=== PATIENT | female | born 1980 | race Caucasian/White ===

== ENCOUNTER 2017-08-23 00:56 | Inpatient (IN) | payer MEDICAID, OTHER ==
[2017-08-23] MEDS ORDERED: NACL 0.9% 1000 ML 1,000 ML IV ONE ×2 (01:30→05:56)
[2017-08-23 02:19] LABS: Basophils % (Auto) 0.2 % (0.0-1.8); Eosinophils % (Auto) 0.3 % (0.0-4.3); Hematocrit 38.9 % (30.3-42.9); Hemoglobin 13.3 gm/dl (10.1-14.3); Lymphocytes # (Auto) 2.6 K/mm3 (1.2-5.4); Lymphocytes % (Auto) 16.8 % (13.4-35.0); Mean Corpuscular HGB Conc 34 % (30-34); Mean Corpuscular Hemoglobin 31 pg (28-32); Mean Corpuscular Volume 89 fl (79-97); Monocytes # (Auto) 1.3 K/mm3 (0.0-0.8); Monocytes % (Auto) 8.2 % (0.0-7.3); Platelet Count 272 K/mm3 (140-440); Red Blood Count 4.36 M/mm3 (3.65-5.03)
[2017-08-23] MEDS ORDERED: SUBLIMAZE IV ONE (02:32)
[2017-08-23 02:57] LABS: Alanine Aminotransferase 132 units/L (7-56); Albumin 4.7 g/dL (3.9-5); BUN/Creatinine Ratio 28; Blood Urea Nitrogen 14 mg/dL (7-17); Calcium 8.8 mg/dL (8.4-10.2); Hemolysis Index 9
--- NOTE | 2017-08-23 03:23 | XRay Report ---
FINAL REPORT EXAM: XR ELBOW 3+V LT HISTORY: left elbow pain and swelling TECHNIQUE: Three views of the left elbow were submitted. FINDINGS: There is no evidence of fracture or joint effusion. The soft tissues are well maintained. IMPRESSION: Within normal limits.
--- NOTE | 2017-08-23 03:24 | XRay Report ---
FINAL REPORT EXAM: XR FOREARM LT HISTORY: left forearm pain TECHNIQUE: Three views of the left forearm were submitted. FINDINGS: There is no evidence of fracture or soft tissue injury. The wrist and elbow joints not show any acute changes. IMPRESSION: Within normal limits.
--- NOTE | 2017-08-23 05:50 | Cat Scan Report ---
FINAL REPORT EXAM: CT ANGIO UPPER EXTREMITY LT HISTORY: left elbow and forearm pain and swelling TECHNIQUE: A CT angiogram was obtained of the left upper extremity extending from just above the elbow joint through the entire forearm following the intravenous injection of 100 cc of Omnipaque 300. Sagittal and coronal MIP reconstructions were reviewed. FINDINGS: The brachial artery is widely patent. The radial and ulnar arteries are also widely patent also. There is no evidence of arterial occlusion. There is no evidence of fracture. The muscular shows no evidence of localized injury or contusion. The subcutaneous tissues reveal induration of the subcutaneous fat overlying the posterior aspect the elbow extending anteriorly also. There is no evidence of radiopaque foreign body in the soft tissues. IMPRESSION: No evidence of intimal injury or occlusion of the brachial, radial or ulnar arteries. Induration of the subcutaneous tissues around the elbow compatible soft tissue injury. No evidence of intramuscular injury or fracture. No evidence of subcutaneous hematoma.
[2017-08-23] MEDS ORDERED: ROCEPHIN/NS 1 GM/50 ML 1 GM/50 ML BAG IV ONE (05:56)
[2017-08-23] MEDS ORDERED: TYLENOL #3 PO ONE (05:56)
[2017-08-23] MEDS ORDERED: cefTRIAXone 1 GM in NACL 0.9% 20 ML IV ONE (06:00)
[2017-08-23] MEDS ORDERED: BABY ASPIRIN PO ONE (06:01)
--- NOTE | 2017-08-23 06:01 | Emergency Department Report ---
HPI - General Chief Complaint: Overdose Time Seen by Provider: 08/23/17 01:28 - HPI HPI: The patient is a 37-year-old female presents for evaluation of altered mental status. The patient's son, the patient has exhibited change in baseline mentation and constant severe generalized weakness since this morning. The patient complains of left elbow and forearm pain since awakening this morning. Her son submitted that she fell asleep on her arm, and there was she awoke it was tender and swollen. She states that her arm pain has been constant, 10/10 severity, throbbing in quality, exacerbated with touching of the arm or to the movement of the arm at the elbow joint. Patient denies fever, some to the head, headache, chest pain, dyspnea, abdominal pain, back pain, neck pain, strokelike symptoms. ED Past Medical Hx - Past Medical History Hx Congestive Heart Failure: No Hx Diabetes: No Hx Asthma: No Hx COPD: No - Social History Smoking Status: Unknown if ever smoked Substance Use Type: Alcohol ED Review of Systems ROS: Stated complaint: POSS OVERDOSE Other details as noted in HPI Constitutional: denies: fever ENT: denies: throat or neck pain Respiratory: denies: cough, shortness of breath Cardiovascular: denies: chest pain Endocrine: denies unexplained weight loss or gain Gastrointestinal: denies: abdominal pain, nausea Genitourinary: denies: dysuria Musculoskeletal: reports arm pain denies: leg swelling Skin: denies: rash Neurological: denies: headache Hematological/Lymphatic: denies: easy bleeding or easy bruising Psych: denies sadness or hopelessness Physical Exam - Physical Exam Vital Signs: Vital Signs 08/23/17 08/23/17 08/23/17 01:26 02:46 03:05 Temperature 97.5 F L 97.7 F 97.7 F Pulse Rate 133 H Respiratory 12 Rate Blood Pressure 119/69 [Right] O2 Sat by Pulse 100 Oximetry 08/23/17 04:00 Temperature 97.7 F Pulse Rate Respiratory Rate Blood Pressure [Right] O2 Sat by Pulse Oximetry Physical Exam: General: well-nourished, well-developed, no acute distress Head: Normocephalic, atraumatic Eyes: normal sclera ENT: Mucous membranes are pale and dry Neck: trachea midline, neck supple, No neck stiffness, no cervical adenopathy Respiratory: Breath sounds equal bilaterally, no wheezing, rales, or rhonchi Cardio: S1 and S2 present, no murmurs, rubs, gallops, capillary refill is delayed Abdomen: Normoactive bowel sounds, soft abdomen, no rigidity, no guarding or rebound tenderness Chest WALL/Back: No tenderness to palpation of the chest wall, no CVA tenderness with percussion Musc: Left forearm and elbow erythema and tenderness to palpation present, sensation, motor function, and pulses in the left arm and wrist distal to the area of pain intact, compartments are soft and pliable, no pain with passive flexion or extension, no signs of compartment syndrome at this time Skin: No rash Neuro: Alert, mildly drowsy, disoriented, no obvious sensation or motor deficit in the arms or legs bilaterally Psych: Normal affect ED Course Vital Signs 08/23/17 08/23/17 08/23/17 01:26 02:46 03:05 Temperature 97.5 F L 97.7 F 97.7 F Pulse Rate 133 H Respiratory 12 Rate Blood Pressure 119/69 [Right] O2 Sat by Pulse 100 Oximetry 08/23/17 04:00 Temperature 97.7 F Pulse Rate Respiratory Rate Blood Pressure [Right] O2 Sat by Pulse Oximetry ED Medical Decision Making - Lab Data Result diagrams: 08/23/17 01:36 08/23/17 01:36 - Medical Decision Making The patient was seen and examined by myself. The patient is placed on a satellite project site monitor and continuous pulse ox. On initial evaluation, the patient was found to be in no distress. Evaluation orders were placed. The patient is given pain medicine. Lab results revealed leukocytosis, WBC 15, and severely elevated CK > 5000, consistent with acute rhabdomyolysis. The patient given multiple normal saline fluid boluses for treatment of her rhabdomyolysis. She is given IV Rocephin for treatment of suspected cellulitis. TDr. Serra, the physician on-call for the hospitalist service was contacted. He agreed that the hospitalist service will admit the patient. He also agreed to ensure that the next on, hospitalist will evaluate the patient and admit the patient for further treatment and close monitoring. The ED admit order was placed. The patient was admitted in guarded condition. Critical care attestation.: If time is entered above; I have spent that time in minutes in the direct care of this critically ill patient, excluding procedure time. ED Disposition Clinical Impression: Cellulitis of left forearm, Dehydration Rhabdomyolysis Qualifiers: Rhabdomyolysis type: traumatic Encounter type: initial encounter Qualified Code (s): T79.6XXA - Traumatic ischemia of muscle, initial encounter Disposition: OP ADMIT IP TO THIS HOSP Is pt being admited?: Yes Does the pt Need Aspirin: Yes Condition: Serious Referrals: PRIMARY CARE,MD [Primary Care Provider] - 3-5 Days Time of Disposition: 06:00
[2017-08-23 08:10] LABS: Bilirubin,Urine NEG (Negative); Blood,Urine LG (Negative); Color,Urine Yellow (Yellow); Mucus,Urine FEW /HPF; RBC,Urine < 1.0 /HPF (0.0-6.0); Urobilinogen,Urine < 2.0 mg/dL (<2.0)
[2017-08-23 08:21] LABS: Amphetamine Screen,Urine PRESUMPTIVE NEGATIVE; Benzodiazepines Screen,Urine PRESUMPTIVE NEGATIVE; Cannabinoid Screen,Urine PRESUMPTIVE NEGATIVE; Cocaine Screen,Urine PRESUMPTIVE NEGATIVE; Opiate Screen,Urine PRESUMPTIVE NEGATIVE
[2017-08-23 08:36] LABS: Methadone Screen,Urine PRESUMPTIVE POSITIVE
--- NOTE | 2017-08-23 09:12 | History and Physical Report ---
History of Present Illness Date of examination: 08/23/17 Date of admission: 08/23/17 Chief complaint: cellulitis left arm possible overe dose of seroquel and Prazosin History of present illness: The patient is a 37-year-old female presents for evaluation of altered mental status. Pt ronit is very sleepy and has to be woken up to answer questionsted she tookover doese of her meds - seroquel and minipress (prazosin) unintentionally. The patient's son, the patient has exhibited change in baseline mentation and constant severe generalized weakness since this morning. The patient complains of left elbow and forearm pain since awakening this morning. Her son submitted that she fell asleep on her arm, and there was she awoke it was tender and swollen. She states that her arm pain has been constant , 10/10 severity, throbbing in quality, exacerbated with touching of the arm or to the movement of the arm at the elbow joint. Patient denies fever, some to the head, headache, chest pain, dyspnea, abdominal pain, back pain, neck pain, strokelike symptoms. Past History Past Medical History: other (depression) Past Surgical History: No surgical history Social history: alcohol abuse. denies: smoking Family history: other (depression) Medications and Allergies Allergies Allergy/AdvReac Type Severity Reaction Status Date / Time No Known Allergies Allergy Verified 02/19/13 07:41 Home Medications Medication Instructions Recorded Confirmed Last Taken Type Prazosin [Minipress] 1 mg PO BID 08/23/17 08/23/17 Unknown History Active Meds: Seroquell Review of Systems ROS unobtainable: due to mental status Exam - Constitutional Vitals: Temp Pulse Resp BP Pulse Ox 99.2 F 120 H 20 118/64 99 08/23/17 08:10 08/23/17 08:10 08/23/17 08:10 08/23/17 08:10 08/23/17 08:10 General appearance: Present: no acute distress, well-nourished, other (sleepy and unable to maintain a conversation) - EENT Eyes: Present: PERRL ENT: hearing intact, clear oral mucosa - Neck Neck: Present: supple, normal ROM - Respiratory Respiratory effort: normal Respiratory: bilateral: CTA - Cardiovascular Heart Sounds: Present: S1 & S2. Absent: rub, click - Extremities Extremities: pulses symmetrical, No edema Extremity abnormal: other (tender infalmed keft albow) Peripheral Pulses: within normal limits - Abdominal General gastrointestinal: Present: soft, non-tender, non-distended, normal bowel sounds - Integumentary Integumentary: Present: clear, warm, dry - Musculoskeletal Musculoskeletal: gait normal, strength equal bilaterally - Psychiatric Psychiatric: appropriate mood/affect, intact judgment & insight - Neurologic Neurologic: CNII-XII intact, moves all extremities Results - Labs CBC & Chem 7: 08/23/17 01:36 08/23/17 09:27 Labs: Abnormal lab results 08/23/17 08/23/17 08/23/17 Range/Units 01:36 01:36 01:36 WBC 15.3 H (4.5-11.0) K/mm3 [place] % (Auto) 8.2 H (0.0-7.3) % [place] # 1.3 H (0.0-0.8) K/mm3 Seg Neutrophils % 74.5 H (40.0-70.0) % Seg Neutrophils # 11.4 H (1.8-7.7) K/mm3 Carbon Dioxide 16 L (22-30) mmol/L Creatinine 0.5 L (0.7-1.2) mg/dL Glucose 126 H (65-100) mg/dL AST 177 H (5-40) units/L ALT 132 H (7-56) units/L Total Creatine Kinase 5752 H (30-135) units/L Ur Specific [place] (1.003-1.030) Salicylates < 0.3 L (2.8-20.0) mg/dL Acetaminophen (10.0-30.0) ug/mL 08/23/17 08/23/17 Range/Units 01:36 07:54 WBC (4.5-11.0) K/mm3 [place] % (Auto) (0.0-7.3) % [place] # (0.0-0.8) K/mm3 Seg Neutrophils % (40.0-70.0) % Seg Neutrophils # (1.8-7.7) K/mm3 Carbon Dioxide (22-30) mmol/L Creatinine (0.7-1.2) mg/dL Glucose (65-100) mg/dL AST (5-40) units/L ALT (7-56) units/L Total Creatine Kinase (30-135) units/L Ur Specific [place] 1.035 H (1.003-1.030) Salicylates (2.8-20.0) mg/dL Acetaminophen < 5.0 L (10.0-30.0) ug/mL Assessment and Plan Cellulitis left arm Overdose of antidepressant Rhabdomyelysis h/o depreession Admit Commencept in iv hydration Levaquin Daily total CK DVT and GI PPx
[2017-08-23 09:54] LABS: Alanine Aminotransferase 181 units/L (7-56); Albumin 3.8 g/dL (3.9-5); BUN/Creatinine Ratio 35; Blood Urea Nitrogen 14 mg/dL (7-17); Calcium 7.9 mg/dL (8.4-10.2); Hemolysis Index 0
[2017-08-23] MEDS ORDERED: NACL 0.9% 1000 ML 1,000 ML IV SCH (10:00)
--- NOTE | 2017-08-23 15:42 | Vascular Lab Report ---
LEFT UPPER EXTREMITY VENOUS DUPLEX: REASON FOR EXAM: Pain and swelling of the left upper extremity COMMENTS ON THE LEFT: All arm veins visualized are freely compressible without evidence of internal echogenicity. The subclavian and internal jugular veins are free of thrombus. Flow is spontaneous and phasic throughout. COMMENTS ON THE RIGHT: A limited study of the jugular and subclavian veins shows no evidence of thrombus. IMPRESSION: No evidence of acute or chronic deep venous thrombosis in the left upper extremity.
[2017-08-23 19:38] LABS: INR 1.05 (0.87-1.13)
[2017-08-23] MEDS: SODIUM BICARBONATE 150 MEQ in D5W 1,000 ML IV SCH (22:42)
[2017-08-24 01:06] LABS: Alanine Aminotransferase 215 units/L (7-56)
[2017-08-24 01:09] LABS: Bilirubin,Direct < 0.2 mg/dL (0-0.2)
[2017-08-24 07:13] LABS: Alanine Aminotransferase 210 units/L (7-56); Albumin 3.8 g/dL (3.9-5)
[2017-08-24 07:20] LABS: Bilirubin,Direct < 0.2 mg/dL (0-0.2)
[2017-08-24] MEDS: MORPHINE IV PRN ×2 (12:51→16:54)
[2017-08-24 13:26] LABS: Alanine Aminotransferase 202 units/L (7-56); Albumin 3.7 g/dL (3.9-5); BUN/Creatinine Ratio 20; Blood Urea Nitrogen 8 mg/dL (7-17); Calcium 8.2 mg/dL (8.4-10.2); Hemolysis Index 5
[2017-08-24 13:28] LABS: Alanine Aminotransferase 202 units/L (7-56); Albumin 3.7 g/dL (3.9-5)
[2017-08-24 13:35] LABS: Bilirubin,Direct < 0.2 mg/dL (0-0.2)
--- NOTE | 2017-08-24 16:09 | Consultation ---
History of Present Illness - [facility] Consult date: 08/24/17 Consult reason: joint pain History of present illness: 37 y/o female with c/o left elbow and forearm pain and swellling after accidently taking overdosage of prescription medications, according to son. Past History Past Medical History: other (depression) Past Surgical History: No surgical history Social history: alcohol abuse. denies: smoking Family history: other (depression) Medications and Allergies Allergies Allergy/AdvReac Type Severity Reaction Status Date / Time No Known Allergies Allergy Verified 02/19/13 07:41 Home Medications Medication Instructions Recorded Confirmed Last Taken Type Prazosin [Minipress] 1 mg PO BID 08/23/17 08/23/17 Unknown History Active Meds: Active Medications Sodium Chloride (Nacl 0.9% 1000 Ml) 1,000 mls @ 150 mls/hr IV DIRECT BUTCH Last Admin: 08/23/17 15:32 Dose: 150 mls/hr Sodium Bicarbonate 150 meq/ (Dextrose) 1,150 mls @ 75 mls/hr IV DIRECT BUTCH Last Admin: 08/23/17 22:42 Dose: 75 mls/hr Morphine Sulfate (Morphine) 2 mg IV Q4H PRN PRN Reason: Pain, Moderate (4-6) Last Admin: 08/24/17 12:51 Dose: 2 mg Physical Examination - Physical exam Narrative exam: left upper extremity - moderate swelling, compartments compressible good passive ROM at all digits, good capillary refill, weak inventory control supervisor strength Assessment and Plan neuropraxia left upper secondary to prolonged compression doubt compartment syndrome at this point recommend observation at this point...
--- NOTE | 2017-08-24 16:28 | Progress Note ---
<HIPOLITO FINN - Last Filed: 08/25/17 11:55> Assessment and Plan Assessment and plan: Patient is a 37-year-old woman who presented to the emergency department with altered mental status secondary to possible unintentional overdose of Seroquel and prazosin. Patient also complained of left elbow pain and swelling. Cellulitis left arm Initiated on IV antibiotics, supportive care, ortho consult UE VENOUS DUPLEX DONE. NO EVIDENCE OF DVT/SVT IN VESSELS VISUALIZED. SOFT TISSUE CHANGES SEEN IN THE LT.AC/PX FOREARM. Overdose of antidepressant Continue to monitor, IV resuscitation Elevated liver enzymes Likely secondary to above, abdominal U/s ordered Rhabdomyolysis IV resuscitation, Daily total CK Hyperglycemia No history of DM, will check A1C Hypokalemia supplemented Depression Will hold Seroquel in light of OD DVT SCDs History Interval history: Patient seen and examined. She continues to complain of left arm pain. She has no other complaints at this time. Labs and nursing notes reviewed. Hospitalist Physical - Physical exam Narrative exam: General appearance: Present: no acute distress, well-nourished - EENT Eyes: Present: PERRL, EOM intact ENT: hearing intact, clear oral mucosa - Neck Present: supple, normal ROM - Respiratory Respiratory effort: normal Respiratory: bilateral: CTA - Cardiovascular Rhythm: regular Heart Sounds: Present: S1 & S2 - Extremities Extremities: no ischemia, left elbow erythematous, edematous, tender to palpation - Abdominal General gastrointestinal: soft, non-tender, non-distended - Integumentary Integumentary: Present: clear, warm, dry - Psychiatric Psychiatric: appropriate mood/affect, intact judgment & insight, cooperative - Neurologic Neurologic: CNII-XII intact, moves all extremities - Constitutional Vitals: Temp Pulse Resp BP Pulse Ox 99.9 F H 95 H 18 139/79 98 08/24/17 11:34 08/24/17 08:07 08/24/17 11:34 08/24/17 11:34 08/24/17 08:07 Results - Labs CBC & Chem 7: 08/24/17 16:25 08/25/17 08:49 Labs: Laboratory Last Values WBC 15.3 K/mm3 (4.5-11.0) H 08/23/17 01:36 RBC 4.36 M/mm3 (3.65-5.03) 08/23/17 01:36 Hgb 13.3 gm/dl (10.1-14.3) 08/23/17 01:36 Hct 38.9 % (30.3-42.9) 08/23/17 01:36 MCV 89 fl (79-97) 08/23/17 01:36 MCH 31 pg (28-32) 08/23/17 01:36 MCHC 34 % (30-34) 08/23/17 01:36 RDW 14.0 % (13.2-15.2) 08/23/17 01:36 Plt Count 272 K/mm3 (140-440) 08/23/17 01:36 Lymph % (Auto) 16.8 % (13.4-35.0) 08/23/17 01:36 [place] % (Auto) 8.2 % (0.0-7.3) H 08/23/17 01:36 Eos % (Auto) 0.3 % (0.0-4.3) 08/23/17 01:36 Baso % (Auto) 0.2 % (0.0-1.8) 08/23/17 01:36 Lymph # 2.6 K/mm3 (1.2-5.4) 08/23/17 01:36 [place] # 1.3 K/mm3 (0.0-0.8) H 08/23/17 01:36 Eos # 0.0 K/mm3 (0.0-0.4) 08/23/17 01:36 Baso # 0.0 K/mm3 (0.0-0.1) 08/23/17 01:36 Seg Neutrophils % 74.5 % (40.0-70.0) H 08/23/17 01:36 Seg Neutrophils # 11.4 K/mm3 (1.8-7.7) H 08/23/17 01:36 PT 14.3 Sec. (12.2-14.9) 08/23/17 19:17 INR 1.05 (0.87-1.13) 08/23/17 19:17 Sodium 135 mmol/L (137-145) L 08/24/17 12:23 Potassium 3.4 mmol/L (3.6-5.0) L 08/24/17 12:23 Chloride 106.5 mmol/L (98-107) 08/24/17 12:23 Carbon Dioxide 17 mmol/L (22-30) L 08/24/17 12:23 Anion Gap 15 mmol/L 08/24/17 12:23 BUN 8 mg/dL (7-17) 08/24/17 12:23 Creatinine 0.4 mg/dL (0.7-1.2) L 08/24/17 12:23 Estimated GFR > 60 ml/min 08/24/17 12:23 BUN/Creatinine Ratio 20 % 08/24/17 12:23 Glucose 144 mg/dL (65-100) H 08/24/17 12:23 Calcium 8.2 mg/dL (8.4-10.2) L 08/24/17 12:23 Total Bilirubin 0.40 mg/dL (0.1-1.2) 08/24/17 12:23 Direct Bilirubin < 0.2 mg/dL (0-0.2) 08/24/17 12:23 Indirect Bilirubin 0.2 mg/dL 08/24/17 12:23 AST 331 units/L (5-40) H 08/24/17 12:23 ALT 202 units/L (7-56) H 08/24/17 12:23 Alkaline Phosphatase 76 units/L (35-129) 08/24/17 12:23 Total Creatine Kinase 6336 units/L (30-135) H 08/24/17 12:23 NT-Pro-B Natriuret Pep 89.77 pg/mL (0-450) 08/23/17 01:36 Total Protein 6.9 g/dL (6.3-8.2) 08/24/17 12:23 Albumin 3.7 g/dL (3.9-5) L 08/24/17 12:23 Albumin/Globulin Ratio 1.2 % 08/24/17 12:23 HCG, Qual Negative (Negative) 08/23/17 01:36 Urine Color Yellow (Yellow) 08/23/17 07:54 Urine Turbidity Clear (Clear) 08/23/17 07:54 Urine pH 6.0 (5.0-7.0) 08/23/17 07:54 Ur Specific [place] 1.035 (1.003-1.030) H 08/23/17 07:54 Urine Protein 100 mg/dl mg/dL (Negative) 08/23/17 07:54 Urine Glucose (UA) Neg mg/dL (Negative) 08/23/17 07:54 Urine Ketones 80 mg/dL (Negative) 08/23/17 07:54 Urine Blood Lg (Negative) 08/23/17 07:54 Urine Nitrite Neg (Negative) 08/23/17 07:54 Urine Bilirubin Neg (Negative) 08/23/17 07:54 Urine Urobilinogen < 2.0 mg/dL (<2.0) 08/23/17 07:54 Ur Leukocyte Esterase Neg (Negative) 08/23/17 07:54 Urine WBC (Auto) 3.0 /HPF (0.0-6.0) 08/23/17 07:54 Urine RBC (Auto) < 1.0 /HPF (0.0-6.0) 08/23/17 07:54 U Epithel Cells (Auto) 2.0 /HPF (0-13.0) 08/23/17 07:54 Urine Mucus Few /HPF 08/23/17 07:54 Salicylates < 0.3 mg/dL (2.8-20.0) L 08/23/17 01:36 Urine Opiates Screen Presumptive negative 08/23/17 07:55 Urine Methadone Screen Presumptive positive 08/23/17 07:55 Acetaminophen < 5.0 ug/mL (10.0-30.0) L 08/23/17 01:36 Ur Barbiturates Screen Presumptive negative 08/23/17 07:55 Ur Phencyclidine Scrn Presumptive negative 08/23/17 07:55 Ur Amphetamines Screen Presumptive negative 08/23/17 07:55 U Benzodiazepines Scrn Presumptive negative 08/23/17 07:55 Urine Cocaine Screen Presumptive negative 08/23/17 07:55 U Marijuana (THC) Screen Presumptive negative 08/23/17 07:55 Drugs of Abuse Note Disclamer 08/23/17 07:55 Plasma/Serum Alcohol < 0.01 % (0-0.07) 08/23/17 01:36 <NAYELY MEDEROS - Last Filed: 08/26/17 14:28> Assessment and Plan Disposition Plan: Discussed Mx plan with physician panel gl[facility] Physical - Constitutional Vitals: Temp Pulse Resp BP Pulse Ox 98.5 F 102 H 18 150/86 100 08/26/17 04:10 08/26/17 04:10 08/26/17 10:00 08/26/17 04:10 08/26/17 04:10 Results - Labs CBC & Chem 7: 08/25/17 16:19 08/25/17 08:49 Labs: Laboratory Last Values WBC 10.6 K/mm3 (4.5-11.0) 08/25/17 16:19 RBC 4.16 M/mm3 (3.65-5.03) 08/25/17 16:19 Hgb 12.4 gm/dl (10.1-14.3) 08/25/17 16:19 Hct 36.6 % (30.3-42.9) 08/25/17 16:19 MCV 88 fl (79-97) 08/25/17 16:19 MCH 30 pg (28-32) 08/25/17 16:19 MCHC 34 % (30-34) 08/25/17 16:19 RDW 14.0 % (13.2-15.2) 08/25/17 16:19 Plt Count 285 K/mm3 (140-440) 08/25/17 16:19 Lymph % (Auto) 30.2 % (13.4-35.0) 08/25/17 16:19 [place] % (Auto) 8.5 % (0.0-7.3) H 08/25/17 16:19 Eos % (Auto) 0.9 % (0.0-4.3) 08/25/17 16:19 Baso % (Auto) 0.6 % (0.0-1.8) 08/25/17 16:19 Lymph # 3.2 K/mm3 (1.2-5.4) 08/25/17 16:19 [place] # 0.9 K/mm3 (0.0-0.8) H 08/25/17 16:19 Eos # 0.1 K/mm3 (0.0-0.4) 08/25/17 16:19 Baso # 0.1 K/mm3 (0.0-0.1) 08/25/17 16:19 Seg Neutrophils % 59.8 % (40.0-70.0) 08/25/17 16:19 Seg Neutrophils # 6.3 K/mm3 (1.8-7.7) 08/25/17 16:19 PT 14.3 Sec. (12.2-14.9) 08/23/17 19:17 INR 1.05 (0.87-1.13) 08/23/17 19:17 Sodium 134 mmol/L (137-145) L 08/25/17 08:49 Potassium 3.5 mmol/L (3.6-5.0) L 08/25/17 08:49 Chloride 102.7 mmol/L (98-107) 08/25/17 08:49 Carbon Dioxide 24 mmol/L (22-30) D 08/25/17 08:49 Anion Gap 11 mmol/L 08/25/17 08:49 BUN 11 mg/dL (7-17) 08/25/17 08:49 Creatinine 0.4 mg/dL (0.7-1.2) L 08/25/17 08:49 Estimated GFR > 60 ml/min 08/25/17 08:49 BUN/Creatinine Ratio 28 % 08/25/17 08:49 Glucose 240 mg/dL (65-100) H 08/25/17 08:49 Hemoglobin A1c 5.5 % (4-6) 08/24/17 16:25 Calcium 7.8 mg/dL (8.4-10.2) L 08/25/17 08:49 Magnesium 2.20 mg/dL (1.7-2.3) 08/25/17 16:19 Total Bilirubin 0.60 mg/dL (0.1-1.2) 08/25/17 08:49 Direct Bilirubin < 0.2 mg/dL (0-0.2) 08/24/17 16:25 Indirect Bilirubin 0.2 mg/dL 08/24/17 16:25 AST 259 units/L (5-40) H 08/25/17 08:49 ALT 176 units/L (7-56) H 08/25/17 08:49 Alkaline Phosphatase 77 units/L (35-129) 08/25/17 08:49 Total Creatine Kinase 4328 units/L (30-135) H 08/25/17 08:40 NT-Pro-B Natriuret Pep 89.77 pg/mL (0-450) 08/23/17 01:36 Total Protein 6.6 g/dL (6.3-8.2) 08/25/17 08:49 Albumin 3.5 g/dL (3.9-5) L 08/25/17 08:49 Albumin/Globulin Ratio 1.1 % 08/25/17 08:49 TSH 3.550 mlU/mL (0.270-4.200) 08/25/17 16:19 HCG, Qual Negative (Negative) 08/23/17 01:36 Urine Color Yellow (Yellow) 08/23/17 07:54 Urine Turbidity Clear (Clear) 08/23/17 07:54 Urine pH 6.0 (5.0-7.0) 08/23/17 07:54 Ur Specific [place] 1.035 (1.003-1.030) H 08/23/17 07:54 Urine Protein 100 mg/dl mg/dL (Negative) 08/23/17 07:54 Urine Glucose (UA) Neg mg/dL (Negative) 08/23/17 07:54 Urine Ketones 80 mg/dL (Negative) 08/23/17 07:54 Urine Blood Lg (Negative) 08/23/17 07:54 Urine Nitrite Neg (Negative) 08/23/17 07:54 Urine Bilirubin Neg (Negative) 08/23/17 07:54 Urine Urobilinogen < 2.0 mg/dL (<2.0) 08/23/17 07:54 Ur Leukocyte Esterase Neg (Negative) 08/23/17 07:54 Urine WBC (Auto) 3.0 /HPF (0.0-6.0) 08/23/17 07:54 Urine RBC (Auto) < 1.0 /HPF (0.0-6.0) 08/23/17 07:54 U Epithel Cells (Auto) 2.0 /HPF (0-13.0) 08/23/17 07:54 Urine Mucus Few /HPF 08/23/17 07:54 Salicylates < 0.3 mg/dL (2.8-20.0) L 08/23/17 01:36 Urine Opiates Screen Presumptive negative 08/23/17 07:55 Urine Methadone Screen Presumptive positive 08/23/17 07:55 Acetaminophen < 5.0 ug/mL (10.0-30.0) L 08/23/17 01:36 Ur Barbiturates Screen Presumptive negative 08/23/17 07:55 Ur Phencyclidine Scrn Presumptive negative 08/23/17 07:55 Ur Amphetamines Screen Presumptive negative 08/23/17 07:55 U Benzodiazepines Scrn Presumptive negative 08/23/17 07:55 Urine Cocaine Screen Presumptive negative 08/23/17 07:55 U Marijuana (THC) Screen Presumptive negative 08/23/17 07:55 Drugs of Abuse Note Disclamer 08/23/17 07:55 Plasma/Serum Alcohol < 0.01 % (0-0.07) 08/23/17 01:36
[2017-08-24 16:43] LABS: Basophils # (Auto) 0.1 K/mm3 (0.0-0.1); Basophils % (Auto) 0.5 % (0.0-1.8); Eosinophils % (Auto) 0.3 % (0.0-4.3); Hematocrit 36.1 % (30.3-42.9); Lymphocytes # (Auto) 2.9 K/mm3 (1.2-5.4); Lymphocytes % (Auto) 27.1 % (13.4-35.0); Mean Corpuscular HGB Conc 33 % (30-34); Mean Corpuscular Hemoglobin 30 pg (28-32); Mean Corpuscular Volume 89 fl (79-97); Monocytes # (Auto) 0.9 K/mm3 (0.0-0.8); Monocytes % (Auto) 8.4 % (0.0-7.3); Platelet Count 281 K/mm3 (140-440); Red Blood Count 4.07 M/mm3 (3.65-5.03); Red Cell Distribution Width 14.1 % (13.2-15.2)
[2017-08-24 17:09] LABS: Alanine Aminotransferase 213 units/L (7-56)
[2017-08-24 17:13] LABS: Bilirubin,Direct < 0.2 mg/dL (0-0.2)
[2017-08-24] MEDS: SODIUM BICARBONATE 150 MEQ in D5W 1,000 ML IV SCH (18:03)
[2017-08-24] MEDS: ZOSYN/NS 3.375GM/50ML 3.375 GM/50 ML BAG IV SCH (19:40)
[2017-08-25] MEDS: ZOSYN/NS 3.375GM/50ML 3.375 GM/50 ML BAG IV SCH ×4 (00:15→22:53)
[2017-08-25] MEDS: MORPHINE IV PRN ×4 (00:19→20:34)
[2017-08-25 09:25] LABS: Alanine Aminotransferase 176 units/L (7-56); Albumin 3.5 g/dL (3.9-5); BUN/Creatinine Ratio 28; Blood Urea Nitrogen 11 mg/dL (7-17); Calcium 7.8 mg/dL (8.4-10.2); Hemolysis Index 2
--- NOTE | 2017-08-25 10:37 | Ultrasound Report ---
Sonogram abdomen: History: Pseudocyst. Findings: Aortic diameter 1.6 cm. Uniform increase in echogenicity liver probably suggestive of fatty liver. No intrahepatic or extrahepatic duct dilatation. Common bile duct diameter 4.3 mm. Two largest stones identified within the gallbladder. Gallbladder wall thickness 2.5 mm. Right kidney 11.9 x 5.4 x 6 cm. Cortical thickness is 1.5 cm. Left kidney 12.3 x 2.9 x 4.3 cm. Cortical thickness 1.3 cm. The spleen measures 10.7 cm. Pancreas is normal. Impression: Fatty liver. 2 large calculi in the gallbladder
[2017-08-25] MEDS ORDERED: K-DUR PO NR (11:49)
--- NOTE | 2017-08-25 11:55 | Progress Note ---
<HIPOLITO FINN - Last Filed: 08/25/17 14:53> Assessment and Plan Assessment and plan: Patient is a 37-year-old woman who presented to the emergency department with altered mental status secondary to possible unintentional overdose of Seroquel and prazosin. Patient also complained of left elbow pain and swelling. Cellulitis left arm Initiated on IV antibiotics, supportive care UE VENOUS DUPLEX DONE. NO EVIDENCE OF DVT/SVT IN VESSELS VISUALIZED. SOFT TISSUE CHANGES SEEN IN THE LT.AC/PX FOREARM. ortho following-neuropraxia left upper secondary to prolonged compression doubt compartment syndrome at this point recommend observation at this point Overdose of antidepressant Continue to monitor, IV resuscitation Elevated liver enzymes Trending down, Likely secondary to above abdominal U/s shows Fatty liver and 2 large calculi in the gallbladder Rhabdomyolysis IV resuscitation, Daily total CK Hyperglycemia No history of DM, will check A1C Hypokalemia Supplemented Depression Will hold Seroquel in light of OD DVT SCDs History Interval history: Patient seen and examined. R arm pain, tenderness and swelling worsening. Patient has no new complaints. Labs and nursing notes reviewed. Hospitalist Physical - Physical exam Narrative exam: General appearance: Present: no acute distress, well-nourished - EENT Eyes: Present: PERRL, EOM intact ENT: hearing intact, clear oral mucosa - Neck Present: supple, normal ROM - Respiratory Respiratory effort: normal Respiratory: bilateral: CTA - Cardiovascular Rhythm: regular Heart Sounds: Present: S1 & S2 - Extremities Extremities: no ischemia, left arm, forearm and fingers edematous, tender to palpation - Abdominal General gastrointestinal: soft, non-tender, non-distended - Integumentary Integumentary: Present: clear, warm, dry - Psychiatric Psychiatric: appropriate mood/affect, intact judgment & insight, cooperative - Neurologic Neurologic: CNII-XII intact, moves all extremities - Constitutional Vitals: Temp Pulse Resp BP Pulse Ox 98.4 F 95 H 18 137/90 97 08/25/17 07:48 08/25/17 07:48 08/25/17 07:48 08/25/17 07:48 08/25/17 07:48 General appearance: Present: other Results - Labs CBC & Chem 7: 08/24/17 16:25 08/25/17 08:49 Labs: Laboratory Last Values WBC 10.8 K/mm3 (4.5-11.0) 08/24/17 16:25 RBC 4.07 M/mm3 (3.65-5.03) 08/24/17 16:25 Hgb 12.0 gm/dl (10.1-14.3) 08/24/17 16:25 Hct 36.1 % (30.3-42.9) 08/24/17 16:25 MCV 89 fl (79-97) 08/24/17 16:25 MCH 30 pg (28-32) 08/24/17 16:25 MCHC 33 % (30-34) 08/24/17 16:25 RDW 14.1 % (13.2-15.2) 08/24/17 16:25 Plt Count 281 K/mm3 (140-440) 08/24/17 16:25 Lymph % (Auto) 27.1 % (13.4-35.0) 08/24/17 16:25 [place] % (Auto) 8.4 % (0.0-7.3) H 08/24/17 16:25 Eos % (Auto) 0.3 % (0.0-4.3) 08/24/17 16:25 Baso % (Auto) 0.5 % (0.0-1.8) 08/24/17 16:25 Lymph # 2.9 K/mm3 (1.2-5.4) 08/24/17 16:25 [place] # 0.9 K/mm3 (0.0-0.8) H 08/24/17 16:25 Eos # 0.0 K/mm3 (0.0-0.4) 08/24/17 16:25 Baso # 0.1 K/mm3 (0.0-0.1) 08/24/17 16:25 Seg Neutrophils % 63.7 % (40.0-70.0) 08/24/17 16:25 Seg Neutrophils # 6.9 K/mm3 (1.8-7.7) 08/24/17 16:25 PT 14.3 Sec. (12.2-14.9) 08/23/17 19:17 INR 1.05 (0.87-1.13) 08/23/17 19:17 Sodium 134 mmol/L (137-145) L 08/25/17 08:49 Potassium 3.5 mmol/L (3.6-5.0) L 08/25/17 08:49 Chloride 102.7 mmol/L (98-107) 08/25/17 08:49 Carbon Dioxide 24 mmol/L (22-30) D 08/25/17 08:49 Anion Gap 11 mmol/L 08/25/17 08:49 BUN 11 mg/dL (7-17) 08/25/17 08:49 Creatinine 0.4 mg/dL (0.7-1.2) L 08/25/17 08:49 Estimated GFR > 60 ml/min 08/25/17 08:49 BUN/Creatinine Ratio 28 % 08/25/17 08:49 Glucose 240 mg/dL (65-100) H 08/25/17 08:49 Calcium 7.8 mg/dL (8.4-10.2) L 08/25/17 08:49 Total Bilirubin 0.60 mg/dL (0.1-1.2) 08/25/17 08:49 Direct Bilirubin < 0.2 mg/dL (0-0.2) 08/24/17 16:25 Indirect Bilirubin 0.2 mg/dL 08/24/17 16:25 AST 259 units/L (5-40) H 08/25/17 08:49 ALT 176 units/L (7-56) H 08/25/17 08:49 Alkaline Phosphatase 77 units/L (35-129) 08/25/17 08:49 Total Creatine Kinase 6375 units/L (30-135) H 08/24/17 16:25 NT-Pro-B Natriuret Pep 89.77 pg/mL (0-450) 08/23/17 01:36 Total Protein 6.6 g/dL (6.3-8.2) 08/25/17 08:49 Albumin 3.5 g/dL (3.9-5) L 08/25/17 08:49 Albumin/Globulin Ratio 1.1 % 08/25/17 08:49 HCG, Qual Negative (Negative) 08/23/17 01:36 Urine Color Yellow (Yellow) 08/23/17 07:54 Urine Turbidity Clear (Clear) 08/23/17 07:54 Urine pH 6.0 (5.0-7.0) 08/23/17 07:54 Ur Specific [place] 1.035 (1.003-1.030) H 08/23/17 07:54 Urine Protein 100 mg/dl mg/dL (Negative) 08/23/17 07:54 Urine Glucose (UA) Neg mg/dL (Negative) 08/23/17 07:54 Urine Ketones 80 mg/dL (Negative) 08/23/17 07:54 Urine Blood Lg (Negative) 08/23/17 07:54 Urine Nitrite Neg (Negative) 08/23/17 07:54 Urine Bilirubin Neg (Negative) 08/23/17 07:54 Urine Urobilinogen < 2.0 mg/dL (<2.0) 08/23/17 07:54 Ur Leukocyte Esterase Neg (Negative) 08/23/17 07:54 Urine WBC (Auto) 3.0 /HPF (0.0-6.0) 08/23/17 07:54 Urine RBC (Auto) < 1.0 /HPF (0.0-6.0) 08/23/17 07:54 U Epithel Cells (Auto) 2.0 /HPF (0-13.0) 08/23/17 07:54 Urine Mucus Few /HPF 08/23/17 07:54 Salicylates < 0.3 mg/dL (2.8-20.0) L 08/23/17 01:36 Urine Opiates Screen Presumptive negative 08/23/17 07:55 Urine Methadone Screen Presumptive positive 08/23/17 07:55 Acetaminophen < 5.0 ug/mL (10.0-30.0) L 08/23/17 01:36 Ur Barbiturates Screen Presumptive negative 08/23/17 07:55 Ur Phencyclidine Scrn Presumptive negative 08/23/17 07:55 Ur Amphetamines Screen Presumptive negative 08/23/17 07:55 U Benzodiazepines Scrn Presumptive negative 08/23/17 07:55 Urine Cocaine Screen Presumptive negative 08/23/17 07:55 U Marijuana (THC) Screen Presumptive negative 08/23/17 07:55 Drugs of Abuse Note Disclamer 08/23/17 07:55 Plasma/Serum Alcohol < 0.01 % (0-0.07) 08/23/17 01:36 <LEBRON JOSEPH - Last Filed: 08/26/17 07:59> Assessment and Plan Assessment and plan: I saw and evaluated the patient. I agree with the findings and the plan of care as documented in the PA's~note, with the following corrections and additions. Hospitalist Physical - Constitutional Vitals: Temp Pulse Resp BP Pulse Ox 98.5 F 102 H 18 150/86 100 08/26/17 04:10 08/26/17 04:10 08/26/17 04:10 08/26/17 04:10 08/26/17 04:10 Results - Labs CBC & Chem 7: 08/25/17 16:19 08/25/17 08:49 Labs: Laboratory Last Values WBC 10.6 K/mm3 (4.5-11.0) 08/25/17 16: RBC 4.16 M/mm3 (3.65-5.03) 08/25/17 16:19 Hgb 12.4 gm/dl (10.1-14.3) 08/25/17 16:19 Hct 36.6 % (30.3-42.9) 08/25/17 16:19 MCV 88 fl (79-97) 08/25/17 16:19 MCH 30 pg (28-32) 08/25/17 16:19 MCHC 34 % (30-34) 08/25/17 16:19 RDW 14.0 % (13.2-15.2) 08/25/17 16:19 Plt Count 285 K/mm3 (140-440) 08/25/17 16:19 Lymph % (Auto) 30.2 % (13.4-35.0) 08/25/17 16:19 [place] % (Auto) 8.5 % (0.0-7.3) H 08/25/17 16:19 Eos % (Auto) 0.9 % (0.0-4.3) 08/25/17 16:19 Baso % (Auto) 0.6 % (0.0-1.8) 08/25/17 16:19 Lymph # 3.2 K/mm3 (1.2-5.4) 08/25/17 16:19 [place] # 0.9 K/mm3 (0.0-0.8) H 08/25/17 16:19 Eos # 0.1 K/mm3 (0.0-0.4) 08/25/17 16:19 Baso # 0.1 K/mm3 (0.0-0.1) 08/25/17 16:19 Seg Neutrophils % 59.8 % (40.0-70.0) 08/25/17 16:19 Seg Neutrophils # 6.3 K/mm3 (1.8-7.7) 08/25/17 16:19 PT 14.3 Sec. (12.2-14.9) 08/23/17 19:17 INR 1.05 (0.87-1.13) 08/23/17 19:17 Sodium 134 mmol/L (137-145) L 08/25/17 08:49 Potassium 3.5 mmol/L (3.6-5.0) L 08/25/17 08:49 Chloride 102.7 mmol/L (98-107) 08/25/17 08:49 Carbon Dioxide 24 mmol/L (22-30) D 08/25/17 08:49 Anion Gap 11 mmol/L 08/25/17 08:49 BUN 11 mg/dL (7-17) 08/25/17 08:49 Creatinine 0.4 mg/dL (0.7-1.2) L 08/25/17 08:49 Estimated GFR > 60 ml/min 08/25/17 08:49 BUN/Creatinine Ratio 28 % 08/25/17 08:49 Glucose 240 mg/dL (65-100) H 08/25/17 08:49 Hemoglobin A1c 5.5 % (4-6) 08/24/17 16:25 Calcium 7.8 mg/dL (8.4-10.2) L 08/25/17 08:49 Magnesium 2.20 mg/dL (1.7-2.3) 08/25/17 16:19 Total Bilirubin 0.60 mg/dL (0.1-1.2) 08/25/17 08:49 Direct Bilirubin < 0.2 mg/dL (0-0.2) 08/24/17 16:25 Indirect Bilirubin 0.2 mg/dL 08/24/17 16:25 AST 259 units/L (5-40) H 08/25/17 08:49 ALT 176 units/L (7-56) H 08/25/17 08:49 Alkaline Phosphatase 77 units/L (35-129) 08/25/17 08:49 Total Creatine Kinase 4328 units/L (30-135) H 08/25/17 08:40 NT-Pro-B Natriuret Pep 89.77 pg/mL (0-450) 08/23/17 01:36 Total Protein 6.6 g/dL (6.3-8.2) 08/25/17 08:49 Albumin 3.5 g/dL (3.9-5) L 08/25/17 08:49 Albumin/Globulin Ratio 1.1 % 08/25/17 08:49 TSH 3.550 mlU/mL (0.270-4.200) 08/25/17 16:19 HCG, Qual Negative (Negative) 08/23/17 01:36 Urine Color Yellow (Yellow) 08/23/17 07:54 Urine Turbidity Clear (Clear) 08/23/17 07:54 Urine pH 6.0 (5.0-7.0) 08/23/17 07:54 Ur Specific [place] 1.035 (1.003-1.030) H 08/23/17 07:54 Urine Protein 100 mg/dl mg/dL (Negative) 08/23/17 07:54 Urine Glucose (UA) Neg mg/dL (Negative) 08/23/17 07:54 Urine Ketones 80 mg/dL (Negative) 08/23/17 07:54 Urine Blood Lg (Negative) 08/23/17 07:54 Urine Nitrite Neg (Negative) 08/23/17 07:54 Urine Bilirubin Neg (Negative) 08/23/17 07:54 Urine Urobilinogen < 2.0 mg/dL (<2.0) 08/23/17 07:54 Ur Leukocyte Esterase Neg (Negative) 08/23/17 07:54 Urine WBC (Auto) 3.0 /HPF (0.0-6.0) 08/23/17 07:54 Urine RBC (Auto) < 1.0 /HPF (0.0-6.0) 08/23/17 07:54 U Epithel Cells (Auto) 2.0 /HPF (0-13.0) 08/23/17 07:54 Urine Mucus Few /HPF 08/23/17 07:54 Salicylates < 0.3 mg/dL (2.8-20.0) L 08/23/17 01:36 Urine Opiates Screen Presumptive negative 08/23/17 07:55 Urine Methadone Screen Presumptive positive 08/23/17 07:55 Acetaminophen < 5.0 ug/mL (10.0-30.0) L 08/23/17 01:36 Ur Barbiturates Screen Presumptive negative 08/23/17 07:55 Ur Phencyclidine Scrn Presumptive negative 08/23/17 07:55 Ur Amphetamines Screen Presumptive negative 08/23/17 07:55 U Benzodiazepines Scrn Presumptive negative 08/23/17 07:55 Urine Cocaine Screen Presumptive negative 08/23/17 07:55 U Marijuana (THC) Screen Presumptive negative 08/23/17 07:55 Drugs of Abuse Note Disclamer 08/23/17 07:55 Plasma/Serum Alcohol < 0.01 % (0-0.07) 08/23/17 01:36
--- NOTE | 2017-08-25 14:57 | Progress Note ---
Assessment and Plan neuropraxia left upper secondary to prolonged compression doubt compartment syndrome at this point recommend observation at this point... Subjective Date of service: 08/25/17 Interval history: resting comfortably in bed.... Objective Vital signs: Vital Signs - 12hr 08/25/17 08/25/17 08/25/17 04:09 07:48 12:20 Temperature 98.8 F 98.4 F 99.0 F Pulse Rate 90 95 H 100 H Respiratory 18 Rate Blood Pressure 142/87 137/90 148/99 O2 Sat by Pulse 94 97 98 Oximetry Narrative Exam: left elbow/forearm - moderated compartments compressible still, able to move digits actively, passively flex to 60-80 degrees, good capillary refill - Labs CBC & BMP: 08/24/17 16:25 08/25/17 08:49 Labs: Abnormal lab results 08/24/17 08/24/17 08/25/17 Range/Units 16:25 16:25 08:40 [facility] % (Auto) 8.4 H (0.0-7.3) % [facility] # 0.9 H (0.0-0.8) K/mm3 Sodium (137-145) mmol/L Potassium (3.6-5.0) mmol/L Creatinine (0.7-1.2) mg/dL Glucose (65-100) mg/dL Calcium (8.4-10.2) mg/dL AST 337 H (5-40) units/L ALT 213 H (7-56) units/L Total Creatine Kinase 6375 H 4328 H (30-135) units/L Albumin (3.9-5) g/dL 08/25/17 Range/Units 08:49 [facility] % (Auto) (0.0-7.3) % [facility] # (0.0-0.8) K/mm3 Sodium 134 L (137-145) mmol/L Potassium 3.5 L (3.6-5.0) mmol/L Creatinine 0.4 L (0.7-1.2) mg/dL Glucose 240 H (65-100) mg/dL Calcium 7.8 L (8.4-10.2) mg/dL AST 259 H (5-40) units/L ALT 176 H (7-56) units/L Total Creatine Kinase (30-135) units/L Albumin 3.5 L (3.9-5) g/dL
--- NOTE | 2017-08-25 15:37 | Consultation ---
History of Present Illness Consult date: 08/25/17 Reason for consult: gallstones Chief complaint: Altered mental status - History of present illness History of present illness: 37-year-old female with a past medical history of bipolar disorder brought to the emergency room by her family for altered mental status. According to the record and the patient, she mistakenly took too much of her medications consisting of Seroquel and Minipress. The patient was found to have swelling of her left arm, and an elevated CK consistent with rhabdomyolysis for which she is being treated. Her left arm swelling is being followed by orthopedics. Surgery is consulted for the findings of gallstones on ultrasound performed due to elevated LFTs. According to the patient, she denies fevers, chills, chest pain, shortness of breath, nausea, vomiting, abdominal pain, constipation, diarrhea. She has never had right upper quadrant or epigastric abdominal pain. She's never had abdominal pain related to food. She tolerates all diets without difficulty. She is on a diet now and has been tolerating it well. Past History Past Medical History: other (depression) Past Surgical History: No surgical history Social history: alcohol abuse. denies: smoking Family history: other (depression) Medications and Allergies Allergies Allergy/AdvReac Type Severity Reaction Status Date / Time No Known Allergies Allergy Verified 02/19/13 07:41 Home Medications Medication Instructions Recorded Confirmed Last Taken Type Prazosin [Minipress] 1 mg PO BID 08/23/17 08/23/17 Unknown History Active Meds: Active Medications Sodium Bicarbonate 150 meq/ (Dextrose) 1,150 mls @ 75 mls/hr IV DIRECT BUTCH Last Admin: 08/24/17 18:03 Dose: 75 mls/hr Piperacillin Sod/Tazobactam Sod (Zosyn/Ns 3.375gm/50ml) 3.375 gm in 50 mls @ 100 mls/hr IV Q6HR BUTCH; Protocol Last Admin: 08/25/17 14:01 Dose: 100 mls/hr Morphine Sulfate (Morphine) 2 mg IV Q4H PRN PRN Reason: Pain, Moderate (4-6) Last Admin: 08/25/17 13:12 Dose: 2 mg Review of Systems All systems: negative (10 point ROS performed and negative except for that listed in HPI) Exam Vital Signs Temp Pulse Resp BP Pulse Ox 97.5 F L 133 H 12 119/69 100 08/23/17 01:26 08/23/17 01:26 08/23/17 01:26 08/23/17 01:26 08/23/17 01:26 Narrative exam: Gen: AAOx3. NAD ENT: no scleral icterus or conjunctival pallor CV: S1, S2+ Resp: even and unlabored Abd: soft, NT, ND Ext: Left upper extremity edema. Results - Labs 08/24/17 16:25 08/25/17 08:49 Abnormal lab results 08/24/17 08/24/17 08/25/17 Range/Units 16:25 16:25 08:40 [place] % (Auto) 8.4 H (0.0-7.3) % [place] # 0.9 H (0.0-0.8) K/mm3 Sodium (137-145) mmol/L Potassium (3.6-5.0) mmol/L Creatinine (0.7-1.2) mg/dL Glucose (65-100) mg/dL Calcium (8.4-10.2) mg/dL AST 337 H (5-40) units/L ALT 213 H (7-56) units/L Total Creatine Kinase 6375 H 4328 H (30-135) units/L Albumin (3.9-5) g/dL 08/25/17 Range/Units 08:49 [place] % (Auto) (0.0-7.3) % [place] # (0.0-0.8) K/mm3 Sodium 134 L (137-145) mmol/L Potassium 3.5 L (3.6-5.0) mmol/L Creatinine 0.4 L (0.7-1.2) mg/dL Glucose 240 H (65-100) mg/dL Calcium 7.8 L (8.4-10.2) mg/dL AST 259 H (5-40) units/L ALT 176 H (7-56) units/L Total Creatine Kinase (30-135) units/L Albumin 3.5 L (3.9-5) g/dL Diabetes panel 08/24/17 08/24/17 08/25/17 Range/Units 16:25 16:25 08:49 Sodium 134 L (137-145) mmol/L Potassium 3.5 L (3.6-5.0) mmol/L Chloride 102.7 (98-107) mmol/L Carbon Dioxide 24 D (22-30) mmol/L BUN 11 (7-17) mg/dL Creatinine 0.4 L (0.7-1.2) mg/dL Glucose 240 H (65-100) mg/dL Hemoglobin A1c 5.5 (4-6) % Calcium 7.8 L (8.4-10.2) mg/dL AST 337 H 259 H (5-40) units/L ALT 213 H 176 H (7-56) units/L Alkaline Phosphatase 78 77 (35-129) units/L Total Protein 6.6 6.6 (6.3-8.2) g/dL Albumin 4.0 3.5 L (3.9-5) g/dL Calcium panel 08/24/17 08/25/17 Range/Units 16:25 08:49 Calcium 7.8 L (8.4-10.2) mg/dL Albumin 4.0 3.5 L (3.9-5) g/dL Pituitary panel 08/25/17 Range/Units 08:49 Sodium 134 L (137-145) mmol/L Potassium 3.5 L (3.6-5.0) mmol/L Chloride 102.7 (98-107) mmol/L Carbon Dioxide 24 D (22-30) mmol/L BUN 11 (7-17) mg/dL Creatinine 0.4 L (0.7-1.2) mg/dL Glucose 240 H (65-100) mg/dL Calcium 7.8 L (8.4-10.2) mg/dL Adrenal panel 08/24/17 08/25/17 Range/Units 16:25 08:49 Sodium 134 L (137-145) mmol/L Potassium 3.5 L (3.6-5.0) mmol/L Chloride 102.7 (98-107) mmol/L Carbon Dioxide 24 D (22-30) mmol/L BUN 11 (7-17) mg/dL Creatinine 0.4 L (0.7-1.2) mg/dL Glucose 240 H (65-100) mg/dL Calcium 7.8 L (8.4-10.2) mg/dL Total Bilirubin 0.40 0.60 (0.1-1.2) mg/dL AST 337 H 259 H (5-40) units/L ALT 213 H 176 H (7-56) units/L Alkaline Phosphatase 78 77 (35-129) units/L Total Protein 6.6 6.6 (6.3-8.2) g/dL Albumin 4.0 3.5 L (3.9-5) g/dL - Imaging US - abdomen: report reviewed, image reviewed Assessment and Plan 37-year-old female with an incidental finding of cholelithiasis 1. The elevated LFTs are likely related to the patient's recent incident of medication overdose, rhabdomyolysis. Doubt this is related to findings of cholelithiasis. Currently they are trending down. Bilirubin is normal. Recommend trending LFTs and outpatient follow-up of LFTs with PCP 2. Patient informed that she has gallstones. She was advised to keep the symptoms of gallbladder pathology in mind which includes right upper quadrant pain especially after fatty/greasy foods. The patient is currently asymptomatic and therefore no surgical intervention is warranted. 3. Continue medical management of rhabdomyolysis and left upper extremity swelling 4. Continue soft diet as recommended by speech therapy Will sign off. Thank you for this consultation, please call with any questions or concerns.
[2017-08-25] MEDS: SODIUM BICARBONATE 150 MEQ in D5W 1,000 ML IV SCH (16:21)
[2017-08-25 16:43] LABS: Basophils # (Auto) 0.1 K/mm3 (0.0-0.1); Basophils % (Auto) 0.6 % (0.0-1.8); Eosinophils # (Auto) 0.1 K/mm3 (0.0-0.4); Eosinophils % (Auto) 0.9 % (0.0-4.3); Hematocrit 36.6 % (30.3-42.9); Hemoglobin 12.4 gm/dl (10.1-14.3); Lymphocytes # (Auto) 3.2 K/mm3 (1.2-5.4); Lymphocytes % (Auto) 30.2 % (13.4-35.0); Mean Corpuscular HGB Conc 34 % (30-34); Mean Corpuscular Hemoglobin 30 pg (28-32); Mean Corpuscular Volume 88 fl (79-97); Monocytes # (Auto) 0.9 K/mm3 (0.0-0.8); Monocytes % (Auto) 8.5 % (0.0-7.3); Platelet Count 285 K/mm3 (140-440); Red Blood Count 4.16 M/mm3 (3.65-5.03)
[2017-08-26] MEDS: ZOSYN/NS 3.375GM/50ML 3.375 GM/50 ML BAG IV SCH ×5 (01:51→23:00)
[2017-08-26] MEDS: MORPHINE IV PRN ×3 (05:01→22:52)
[2017-08-26] MEDS: SODIUM BICARBONATE 150 MEQ in D5W 1,000 ML IV SCH (09:42)
--- NOTE | 2017-08-26 11:00 | Progress Note ---
Subjective Date of service: 08/26/17 Principal diagnosis: ?cellulitis Interval history: Received consultation for ? cellulitis. Patient will be seen tomorrow. No evidence of sepsis. Consider narrow spectrum abx as cefazolin. Objective - Constitutional Vitals: Vital Signs Temp Pulse Resp BP Pulse Ox 98.5 F 102 H 18 150/86 100 08/26/17 04:10 08/26/17 04:10 08/26/17 10:00 08/26/17 04:10 08/26/17 04:10 Temperature -Last 24 Hours Temperature 98.5 F Temperature 99.5 F Temperature 99.0 F - Labs CBC & Chem 7: 08/25/17 16:19 08/25/17 08:49 Labs: Abnormal lab results 08/25/17 08/25/17 Range/Units 08:40 16:19 [place] % (Auto) 8.5 H (0.0-7.3) % [place] # 0.9 H (0.0-0.8) K/mm3 Total Creatine Kinase 4328 H (30-135) units/L
--- NOTE | 2017-08-26 14:22 | Progress Note ---
Assessment and Plan -Cellulitis left arm; Continue iv cefazolin - Overdose of antidepressant Discussed with Poison control on admission. Symptomatic tx advised - Rhabdomyelysis IV hydration. improving total CK trending down - Transaminasitis - from over dose of minipress slight improvement noted continu with iv hydration and trend - H/O depreession Stable for now. Moniator - DVT and GI PPx Subjective Date of service: 08/26/17 Principal diagnosis: ?cellulitis, transaminesemia Interval history: still confused. No fever Objective - Exam Narrative Exam: Constitutional: Well-nourished well-developed. In no distress Head: Normocephalic atraumatic Eyes: Pupils are equal round and reactive to light Nose: No enlarged turbinates, no septal deviation. Mouth: Moist mucous membranes. Neck: Supple no thyromegaly. No bruit. No JVD Heart: Regular rate and rhythm, S1-S2 abnormal. No rubs murmurs or gallop Lungs: Clear to auscultation bilaterally no rales or rhonchi Abdomen: Soft, nontender. Bowel sound are present. Extremities: No edema no cyanosis and no clubbing. Neuro: confused. No focal sensory or motor deficit. Skin: No rashes no hyperemic spots Psychiatry: Euthymic. Calm. confused - Constitutional Vitals: Vital Signs - 12hr 08/26/17 08/26/17 04:10 10:00 Temperature 98.5 F Pulse Rate 102 H Respiratory 18 20 Rate Respiratory 18 Rate [Left Arm] Blood Pressure 150/86 O2 Sat by Pulse 100 Oximetry - Labs CBC & Chem 7: 08/25/17 16:19 08/25/17 08:49 Labs: Abnormal lab results 08/25/17 08/25/17 Range/Units 08:40 16:19 [place] % (Auto) 8.5 H (0.0-7.3) % [place] # 0.9 H (0.0-0.8) K/mm3 Total Creatine Kinase 4328 H (30-135) units/L
[2017-08-26 17:12] LABS: Basophils # (Auto) 0.1 K/mm3 (0.0-0.1); Basophils % (Auto) 0.5 % (0.0-1.8); Eosinophils # (Auto) 0.2 K/mm3 (0.0-0.4); Eosinophils % (Auto) 1.7 % (0.0-4.3); Hematocrit 37.9 % (30.3-42.9); Hemoglobin 12.5 gm/dl (10.1-14.3); Lymphocytes # (Auto) 4.4 K/mm3 (1.2-5.4); Lymphocytes % (Auto) 39.6 % (13.4-35.0); Mean Corpuscular HGB Conc 33 % (30-34); Mean Corpuscular Hemoglobin 29 pg (28-32); Mean Corpuscular Volume 88 fl (79-97); Monocytes # (Auto) 1.2 K/mm3 (0.0-0.8); Monocytes % (Auto) 10.6 % (0.0-7.3); Platelet Count 313 K/mm3 (140-440); Red Cell Distribution Width 13.9 % (13.2-15.2)
[2017-08-27] MEDS: SODIUM BICARBONATE 150 MEQ in D5W 1,000 ML IV SCH ×2 (05:57→18:12)
[2017-08-27] MEDS: ZOSYN/NS 3.375GM/50ML 3.375 GM/50 ML BAG IV SCH ×2 (05:58→11:48)
[2017-08-27] MEDS: MORPHINE IV PRN ×4 (06:00→20:12)
--- NOTE | 2017-08-27 09:54 | Progress Note ---
Assessment and Plan -Cellulitis left arm; Continue iv cefazolin Elevate arm - Overdose of antidepressant Stable with normal mentation Discussed with Poison control on admission. Symptomatic tx advised - Rhabdomyelysis IV hydration. improving total CK trending down - Transaminasitis - from over dose of minipress slight improvement noted continu with iv hydration and trend - H/O depreession Stable for now. Moniator - DVT and GI PPx Subjective Date of service: 08/27/17 Principal diagnosis: ?cellulitis, transaminesemia Interval history: alert and interactive with normal cognitive fucntion. No fever. Swelling left had improving Objective - Constitutional Vitals: Vital Signs - 12hr 08/27/17 08/27/17 08/27/17 00:06 05:55 08:58 Temperature 98.7 F 98.4 F Pulse Rate 88 88 Respiratory 20 20 17 Rate Blood Pressure 143/87 128/79 O2 Sat by Pulse 96 95 Oximetry 08/27/17 09:32 Temperature Pulse Rate Respiratory 18 Rate Blood Pressure O2 Sat by Pulse Oximetry General appearance: Present: no acute distress, well-nourished - EENT Eyes: PERRL, EOM intact ENT: hearing intact, clear oral mucosa Ears: bilateral: normal - Neck Neck: supple, normal ROM - Respiratory Respiratory effort: normal Respiratory: bilateral: CTA - Cardiovascular Rhythm: regular Heart Sounds: Present: S1 & S2. Absent: gallop, rub Extremities: pulses intact, No edema, normal color, Full ROM - Gastrointestinal General gastrointestinal: Present: soft, non-tender, non-distended, normal bowel sounds - Integumentary Integumentary: clear, warm, dry - Musculoskeletal Musculoskeletal: strength equal bilaterally, other (warm tender swellign left arm) - Neurologic Neurologic: moves all extremities - Psychiatric Psychiatric: memory intact, appropriate mood/affect, intact judgment & insight - Labs CBC & Chem 7: 08/26/17 16:25 08/25/17 08:49 Labs: Abnormal lab results 08/26/17 Range/Units 16:25 WBC 11.2 H (4.5-11.0) K/mm3 Lymph % (Auto) 39.6 H (13.4-35.0) % [place] % (Auto) 10.6 H (0.0-7.3) % [place] # 1.2 H (0.0-0.8) K/mm3
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
[2017-08-27 21:36] LABS: C-Reactive Protein 1.8 mg/dL (0.00-1.30)
[2017-08-27] MEDS ORDERED: ceFAZolin 2 GM in NACL 0.9% 100 ML IV SCH (22:00)
[2017-08-27] MEDS: ANCEF/STERILE WATER 2 GM/20 ML 2 GM/20 ML SYRINGE IV SCH (22:23)
[2017-08-28] MEDS: MORPHINE IV PRN ×4 (03:03→20:07)
[2017-08-28] MEDS: ANCEF/STERILE WATER 2 GM/20 ML 2 GM/20 ML SYRINGE IV SCH ×2 (05:57→14:36)
[2017-08-28] MEDS: SODIUM BICARBONATE 150 MEQ in D5W 1,000 ML IV SCH (09:37)
--- NOTE | 2017-08-28 09:40 | Progress Note ---
Assessment and Plan -Cellulitis left arm; Venou doppler left arm Continue iv cefazolin Elevate arm - Overdose of antidepressant Stable with normal mentation Discussed with Poison control on admission. Symptomatic tx advised - Rhabdomyelysis IV hydration. improving total CK trending down - Transaminasitis - from over dose of minipress slight improvement noted continu with iv hydration and trend - H/O depreession Stable for now. Monitor - DVT and GI PPx Subjective Date of service: 08/28/17 Principal diagnosis: ?cellulitis, transaminesemia Interval history: alert and interactive with normal cognitive function. No fever. Swelling left had improving Objective - Exam Narrative Exam: Constitutional: Well-nourished well-developed. In no distress Head: Normocephalic atraumatic Eyes: Pupils are equal round and reactive to light Nose: No enlarged turbinates, no septal deviation. Mouth: Moist mucous membranes. Neck: Supple no thyromegaly. No bruit. No JVD Heart: Regular rate and rhythm, S1-S2 abnormal. No rubs murmurs or gallop Lungs: Clear to auscultation bilaterally no rales or rhonchi Abdomen: Soft, nontender. Bowel sound are present. Extremities: swelliong of the left uper arm. with induration. imorving though. no cyanosis. Neuro: confused. No focal sensory or motor deficit. Skin: No rashes no hyperemic spots Psychiatry: Euthymic. Calm. confused - Constitutional Vitals: Vital Signs - 12hr 08/27/17 08/28/17 08/28/17 23:46 03:03 04:03 Temperature 99.8 F H Pulse Rate 89 Respiratory 20 18 Rate Respiratory 19 Rate [Left Arm] Blood Pressure 132/77 O2 Sat by Pulse 96 Oximetry 08/28/17 08/28/17 08/28/17 05:41 07:13 08:30 Temperature 98.4 F 98.3 F Pulse Rate 78 82 Respiratory 20 18 16 Rate Respiratory Rate [Left Arm] Blood Pressure 137/75 139/80 O2 Sat by Pulse 94 97 Oximetry 08/28/17 09:33 Temperature Pulse Rate Respiratory 17 Rate Respiratory Rate [Left Arm] Blood Pressure O2 Sat by Pulse Oximetry - Labs CBC & Chem 7: 08/26/17 16:25 08/25/17 08:49 Labs: Abnormal lab results 05/20/18 Range/Units 20:15 Total Creatine Kinase 1771 H (30-135) units/L C-Reactive Protein 1.80 H (0.00-1.30) mg/dL
--- NOTE | 2017-08-28 20:12 | Progress Note ---
Assessment and Plan Assessment: 1) SIRS: better. Etiology most likely due to left arm crush-injury. 2) Left arm crush-injury: ? less likely cellulitis, doubt deep infections -XR elbow neg. -CRP=1.8 -CTA arm showed no evidence of internal injury or occlusion of brachial, radial or ulnar arteries. Induration of SQ soft tissue injury, no fractures, no intramuscular injuries, no hemtoma. -No compartment syndrome per ortho 3) Depression-symptomatic / suicidal attempt, overdosed on seroquel and minipress. UDS + metadone. 4) Elevated LFTs - likely due to rhabdomyolysis from crush injury. CK 6375--> 1771. US showed GB stones but no cholecystitis. Plan: -ok to change cefazolin IV to keflex po in view of low CRP - doubt cellulitis -monitor edema / compartment syndrome, should have ortho f/u as outpatient -Psych consult Thank you for your consultation, will follow up with you. Ruby Jacobs MD Infectious Diseases Specialist [facility] ([facility]) M [phone] O [phone] Subjective Date of service: 08/28/17 Principal diagnosis: ?cellulitis, transaminesemia Interval history: Feels the same, still severe left arm pain and edema. No fever. Microbiology: none Current Antimicrobials: cefazolin Previous Antimicrobials: Zosyn Objective - Exam Narrative Exam: General appearance: Alert in NAD, conversant Eyes: anicteric sclerae, moist conjunctivae; no lid-lag; PERRLA HENT: Atraumatic; oropharynx clear with moist mucous membranes and no mucosal ulcerations/no oral thrush; normal hard and soft palate. Normal external ears. Neck: Trachea midline; supple, no thyromegaly or lymphadenopathy Lungs: CTA, with normal respiratory effort and no intercostal retractions CV: RRR, no murmurs Abdomen: Soft, non-tender; no masses or hepatosplenomegaly Extremities: +marked edema, induration and tenderness of left arm and forearm. No blisters. No erythema. Skin: Normal temperature, turgor and texture; no rash, ulcers or subcutaneous nodules Psych: Appropriate affect, alert and oriented to person, place and time. Neuro: alert and oriented x 3. Moving all extermities Lines: No CVL / PICC - Constitutional Vitals: Vital Signs Temp Pulse Resp BP Pulse Ox 98.7 F 99 H 20 132/91 97 08/28/17 15:43 08/28/17 16:55 08/28/17 15:43 08/28/17 15:43 08/28/17 15:43 Temperature -Last 24 Hours Temperature 98.7 F Temperature 99.0 F Temperature 98.3 F Temperature 98.4 F Temperature 99.8 F Temperature 98.8 F - Labs CBC & Chem 7: 08/26/17 16:25 08/25/17 08:49 Labs: Abnormal lab results 08/27/17 Range/Units 20:15 Total Creatine Kinase 1771 H (30-135) units/L C-Reactive Protein 1.80 H (0.00-1.30) mg/dL
[2017-08-29] MEDS: KEFLEX PO SCH ×5 (00:29→23:44)
[2017-08-29] MEDS: SODIUM BICARBONATE 150 MEQ in D5W 1,000 ML IV SCH ×2 (00:30→17:16)
[2017-08-29] MEDS: MORPHINE IV PRN ×2 (01:58→08:11)
--- NOTE | 2017-08-29 10:46 | Progress Note ---
Assessment and Plan Assessment: 1) SIRS: better. Etiology most likely due to left arm crush-injury. 2) Left arm crush-injury: ? less likely cellulitis, doubt deep infections. Still severe pain, edema, decreased ROM and numbness -XR elbow neg. -CRP=1.8 -CTA arm showed no evidence of internal injury or occlusion of brachial, radial or ulnar arteries. Induration of SQ soft tissue injury, no fractures, no intramuscular injuries, no hemtoma. -No compartment syndrome per ortho 3) Depression-symptomatic / suicidal attempt, overdosed on seroquel and minipress. UDS + metadone. 4) Elevated LFTs - likely due to rhabdomyolysis from crush injury. CK 6375--> 1771. US showed GB stones but no cholecystitis. Plan: -continue keflex total 10 days until 09/02/17 -monitor edema / compartment syndrome, consider Ortho reconsult I am signing off Thank you for your consultation, will follow up with you. Ruby Jacobs MD Infectious Diseases Specialist [facility] ([facility]) M [phone] O [phone] Subjective Date of service: 08/29/17 Principal diagnosis: ?cellulitis, transaminesemia Interval history: Feels the same, still severe left arm pain 8/10 and edema. No fever. Microbiology: none Current Antimicrobials: keflex 08/28 Previous Antimicrobials: Zosyn cefazolin Objective - Exam Narrative Exam: General appearance: Alert in NAD, conversant Eyes: anicteric sclerae, moist conjunctivae; no lid-lag; PERRLA HENT: Atraumatic; oropharynx clear with moist mucous membranes and no mucosal ulcerations/no oral thrush; normal hard and soft palate. Normal external ears. Neck: Trachea midline; supple, no thyromegaly or lymphadenopathy Lungs: CTA, with normal respiratory effort and no intercostal retractions CV: RRR, no murmurs Abdomen: Soft, non-tender; no masses or hepatosplenomegaly Extremities: +marked edema, induration and tenderness of left arm and forearm. No blisters. No erythema. Skin: Normal temperature, turgor and texture; no rash, ulcers or subcutaneous nodules Psych: Appropriate affect, alert and oriented to person, place and time. Neuro: alert and oriented x 3. Moving all extermities Lines: No CVL / PICC - Constitutional Vitals: Vital Signs Temp Pulse Resp BP Pulse Ox 97.6 F 86 16 141/81 97 08/29/17 07:18 08/29/17 07:18 08/29/17 08:19 08/29/17 07:18 08/29/17 07:18 Temperature -Last 24 Hours Temperature 97.6 F Temperature 98.8 F Temperature 98.3 F Temperature 98.7 F Temperature 99.0 F - Labs CBC & Chem 7: 08/26/17 16:25 08/25/17 08:49
--- NOTE | 2017-08-29 11:17 | Progress Note ---
Assessment and Plan -SIRS from Possilbe crush injury of Left UE Venou doppler left arm Continue iv cefazolin Elevate arm VEnous doppler showed no evidence of DVT Ortoh - Overdose of antidepressant Stable with normal mentation - Rhabdomyelysis IV hydration. improving total CK trending down - Transaminasitis - from over dose of minipress slight improvement noted continu with iv hydration and trend - H/O depreession Stable for now. Monitor - DVT and GI PPx Subjective Date of service: 08/29/17 Principal diagnosis: Pain and swelling right arm, cellulitis, Interval history: still having pain and swelling right arm. No fever. Swelling left had improving Objective - Exam Narrative Exam: Constitutional: Well-nourished well-developed. In no distress Head: Normocephalic atraumatic Eyes: Pupils are equal round and reactive to light Nose: No enlarged turbinates, no septal deviation. Mouth: Moist mucous membranes. Neck: Supple no thyromegaly. No bruit. No JVD Heart: Regular rate and rhythm, S1-S2 abnormal. No rubs murmurs or gallop Lungs: Clear to auscultation bilaterally no rales or rhonchi Abdomen: Soft, nontender. Bowel sound are present. Extremities: swelling of the left uper arm. with induration. imorving though. no cyanosis. Neuro: confused. No focal sensory or motor deficit. Skin: No rashes no hyperemic spots Psychiatry: Euthymic. Calm. confused - Constitutional Vitals: Vital Signs - 12hr 08/28/17 08/29/17 08/29/17 23:18 04:19 07:18 Temperature 98.3 F 98.8 F 97.6 F Pulse Rate 85 77 86 Respiratory 18 18 18 Rate Blood Pressure 147/83 139/85 141/81 O2 Sat by Pulse 98 97 97 Oximetry 08/29/17 08/29/17 08:11 08:19 Temperature Pulse Rate Respiratory 16 16 Rate Blood Pressure O2 Sat by Pulse Oximetry - Labs CBC & Chem 7: 08/26/17 16:25 08/25/17 08:49
[2017-08-29] MEDS: NORCO 5/325 PO PRN ×2 (13:52→21:00)
--- NOTE | 2017-08-29 19:25 | Progress Note ---
Assessment and Plan neuropraxia left upper secondary to prolonged compression doubt compartment syndrome at this point recommend observation at this point... Subjective Date of service: 08/29/17 Principal diagnosis: Pain and swelling right arm, cellulitis, Objective Vital signs: Vital Signs - 12hr 08/29/17 08/29/17 08/29/17 08:11 08:19 10:27 Temperature 98.6 F Pulse Rate 89 Pulse Rate [ 80 Apical] Respiratory 16 16 18 Rate Blood Pressure 139/81 O2 Sat by Pulse 96 Oximetry 08/29/17 08/29/17 08/29/17 13:09 13:52 15:35 Temperature 98.6 F Pulse Rate 80 91 H Pulse Rate [ Apical] Respiratory 16 18 Rate Blood Pressure 136/79 O2 Sat by Pulse 96 Oximetry Narrative Exam: left arm - moderate swelling, compartments compressible, moving fingers on own, good capillary refill - Labs CBC & BMP: 08/26/17 16:25 08/25/17 08:49
[2017-08-30] MEDS: NORCO 5/325 PO PRN ×3 (01:00→12:24)
[2017-08-30] MEDS: KEFLEX PO SCH ×2 (05:37→11:28)
[2017-08-30 07:34] VITALS: BP 142/83
[2017-08-30] MEDS: MORPHINE IV PRN (08:48)
--- NOTE | 2017-08-30 10:22 | Discharge Summary ---
Providers - Providers Date of Admission: 08/23/17 09:19 Date of discharge: 08/30/17 Attending physician: NAYELY MEDEROS 08/23/17 18:26 Speech Therapy Evaluation and Treat [CONS] Stat Reason For Exam: abnoral LFT 08/24/17 07:10 Consult to Physician [CONS] Stat Comment: Consulting Provider: KARLA KERR Physician Instructions: Reason For Exam: left forearm pain and swelling 08/25/17 14:04 Consult to Physician [CONS] Routine Comment: Consulting Provider: GÓMEZ KENNEY Physician Instructions: Reason For Exam: cholelithiasis 08/25/17 14:59 Consult to Physician [CONS] Routine Comment: Consulting Provider: PRISCILA FONTANA Physician Instructions: Reason For Exam: L arm cellulitis 08/29/17 19:25 Physical Therapy Evaluation and Treat [CONS] Routine Comment: Reason For Exam: ROM/STR exercises left arm Weight bearing status?: Full wt bearing Primary care physician: NUT ORCHARDIST Hospitalization Reason for admission: SIIR from crush injury, drug overdose, Rhabdomyelysis Condition: Serious Pertinent studies: CTA of the left upper extremity, arterial and venous Doppler of the left upper extremity. No evidence of arterial or venous occlusion Procedures: None Hospital course: 37-year-old male with a past medical history of hypertension, bipolar disorder, tobacco use, family history CAD presents to the hospital complaining of left- sided throbbing and poking chest pain rated a sensitivity taking since 9 PM. Pain is constant without aggreavating or alleviating factors. Patient denies nausea, vomiting, shortness of breath, diaphoresis, calf tenderness tenderness, recent travel, or history of PE/DVT. History of cocaine abuse 10 years ago which caused chest pain at that time denies history of CAD or stent placement. Denies cocaine use since however pt was here in July and uds was positive for cocaine and thc. Noncompliant with blood pressure medication for 5-6 months. Patient also complains of left arm numbness and paresthesias 2 weeks but now also has left leg numbness. Positive headache reported.patient received aspirin and nitroglycerin prior to arrival. Disposition: TO HOME OR SELFCARE Time spent for discharge: 38 mins - Discharge Diagnoses (1) SIRS (systemic inflammatory response syndrome) Status: Acute (2) Neuropraxia of left upper extremity Status: Acute (3) Dehydration Status: Acute (4) Rhabdomyolysis Status: Acute Qualifiers: Rhabdomyolysis type: traumatic Encounter type: initial encounter Qualified Code(s): T79.6XXA - Traumatic ischemia of muscle, initial encounter Core Measure Documentation - Palliative Care Palliative Care/ Comfort Measures: Not Applicable Exam - Physical Exam Narrative exam: Constitutional: Well-nourished well-developed. In no distress Head: Normocephalic atraumatic Eyes: Pupils are equal round and reactive to light Nose: No enlarged turbinates, no septal deviation. Mouth: Moist mucous membranes. Neck: Supple no thyromegaly. No bruit. No JVD Heart: Regular rate and rhythm, S1-S2 abnormal. No rubs murmurs or gallop Lungs: Clear to auscultation bilaterally no rales or rhonchi Abdomen: Soft, nontender. Bowel sound are present. Extremities: swelling of the left uper arm. with induration. imorving though. no cyanosis. Neuro: confused. No focal sensory or motor deficit. Skin: No rashes no hyperemic spots Psychiatry: Euthymic. Calm. confused - Constitutional Vitals: Temp Pulse Resp BP Pulse Ox 98.4 F 80 16 142/83 95 08/30/17 07:14 08/30/17 08:35 08/30/17 07:14 08/30/17 07:14 08/30/17 07:14 Plan Activity: advance as tolerated Weight Bearing Status: Weight Bear as Tolerated Additional Instructions: ELevate left arm in a sling Follow up with: PRIMARY CARE, [Primary Care Provider] - 3 Days Prescriptions: Cephalexin [Keflex] 500 mg PO Q6HR #16 capsule HYDROcodone/APAP 5-325 [[place] 5-325 mg TAB] 1 each PO Q6H PRN #18 tablet PRN Reason: Pain
--- NOTE | 2017-08-30 13:39 | Vascular Lab Report ---
LEFT UPPER EXTREMITY VENOUS DUPLEX: REASON FOR EXAM: Deep venous thrombosis COMMENTS ON THE LEFT: All arm veins visualized are freely compressible without evidence of internal echogenicity. The subclavian and internal jugular veins are free of thrombus. Flow is spontaneous and phasic throughout. COMMENTS ON THE RIGHT: A limited study of the jugular and subclavian veins shows no evidence of thrombus. IMPRESSION: No evidence of acute or chronic deep venous thrombosis in the left upper extremity.
== END 2017-08-30 13:21 | disposition home or self-care (01) | DRG 918 ==
LOC: ED 00:56 → 3A 09:19 → 4A 08-25 17:20
PROVIDERS: ADMIT Family Medicine; ATTEND Family Medicine
DX: T43.591A Poisoning by other antipsychotics and neuroleptics, accidental (unintentional), initial encounter (principal); M62.82 Rhabdomyolysis; L03.114 Cellulitis of left upper limb; R65.10 Systemic inflammatory response syndrome (SIRS) of non-infectious origin without acute organ dysfunction; E86.0 Dehydration; R73.9 Hyperglycemia, unspecified; E87.6 Hypokalemia; S44.92XA Injury of unspecified nerve at shoulder and upper arm level, left arm, initial encounter; X58.XXXA Exposure to other specified factors, initial encounter; I25.10 Atherosclerotic heart disease of native coronary artery without angina pectoris; T44.6X1A Poisoning by alpha-adrenoreceptor antagonists, accidental (unintentional), initial encounter; K76.0 Fatty (change of) liver, not elsewhere classified; R74.0 Nonspecific elevation of levels of transaminase and lactic acid dehydrogenase [LDH]; F31.9 Bipolar disorder, unspecified; Y93.89 Activity, other specified; Y92.89 Other specified places as the place of occurrence of the external cause; Y99.8 Other external cause status; Z72.0 Tobacco use; Z91.19 Patient's noncompliance with other medical treatment and regimen
CPT/HCPCS: 36415; 76700; 80053; 80074; 80307; 80320; 81001; 82550; 83036; 83735; 83880; 84443; 84703; 85025; 85610; 86140; 93005; 93010; 93306; 96361; 96374; 96375; G0480; J0690; J0696; J2270; J2543; J3010; J7030; J7070; Q9967